=== PATIENT | female | born 1960 | race Caucasian/White ===

== ENCOUNTER → 2019-03-21 | Outpatient (REF) | payer OTHER, SELFPAY | END | disposition home or self-care (01) | LOC: ANHLAB 10:27 | PROVIDERS: Visit Provider Nurse Practitioner | DX: C44.529 Squamous cell carcinoma of skin of other part of trunk (principal) | CPT/HCPCS: 88305; 88331 ==

== ENCOUNTER → 2019-06-15 08:10 | Outpatient (REF) | payer OTHER, SELFPAY | LOC: ANHLAB 08:10 | PROVIDERS: Visit Provider Nurse Practitioner Family | DX: C44.722 Squamous cell carcinoma of skin of right lower limb, including hip (principal) | CPT/HCPCS: 88305; 88331 ==

== ENCOUNTER 2021-12-23 14:16 | Outpatient (NON) | payer OTHER, SELFPAY | END 2021-12-23 14:17 | disposition home or self-care (01) | LOC: ANHLAB 14:16 | PROVIDERS: Visit Provider Nurse Practitioner | DX: C44.622 Squamous cell carcinoma of skin of right upper limb, including shoulder (principal) | CPT/HCPCS: 88305; 88331 ==